=== PATIENT | male | born 1955 | race Caucasian/White ===

== ENCOUNTER 2017-09-02 03:45 | Emergency (ER) | payer MEDICAID, SELFPAY ==
[2017-09-02 03:46] VITALS: BP 154/81; PULSE 75; RESP 16; TEMP 36.6; O2SAT 97; BMI 33.5
--- NOTE | 2017-09-02 04:03 | ED.VISSUMM ---
- ER Visit Summary Date of Service: 09/02/17 Chief Complaint: Visual and auditory hallucinations History of Present Illness: The patient is a 62 M history of psychiatric illness along with diabetes, Parkinson's disease and coronary disease. Patient denies being homicidal or suicidal. Currently he is cooperative and nonviolent. He is resting in bed comfortably. I spoke to patrol police lieutenant brought him in. Reportedly the patient called the police station the night they went out to his home tract without. He is surrounded by several vacant apartments. And he was stating that he was hearing voices coming from his [place]. Also that someone was chasing with a chainsaw. Please verify that none of this was true. They left his apartment. MR call back a second time. He was stating that his neighbors in the apartment complex were trying to put screws through the [place]. Please told me they verify that there was no one around. They agree that the patient is not homicidal or suicidal. They have not been called to his apartment before tonight. Physical Examination: Well-appearing middle-age male. Vital signs are stable he is afebrile. He does not look septic or toxic is currently no acute distress. He is lying in bed. He is cooperative. He is not violent. He is not acting out. He is allowing the nurses to draw his blood. He is in no distress. H EENT exam unremarkable and a poor dentition. Neck nontender. Lungs clear to auscultation bilaterally. Heart regular rate and rhythm no murmur. Abdomen soft nontender. Normal bowel sounds no peritoneal signs. He is moving all 4 extremities. He is neurovascularly intact. There are no focal motor deficits. Back exam is unremarkable result old well-healed lumbar surgical incision. Test Results: CBC normal. BMP unremarkable except acute on chronic renal insufficiency with creatinine 2.11. He has had elevated creatinines in the past. Tox screen negative. Alcohol level negative. Emergency Department Course and Treatment: Is with a prior psychiatric history. Screening labs be obtained. He will be a crisis evaluation for final disposition. Treatment Plan: Patient is doing well on repeat exam at 06 50. Crisis personnel is in the ER at this time evaluate the patient. I will make final disposition. I am comfortable to discharge the patient to home with close follow-up with counseling center this week. Disposition: dc Impression: History of psychiatric illness Acute visual and auditory hallucinations History of CAD, diabetes and Parkinson's disease. This note was generated with [employer] dictation software. It may contain incorrect words, spelling, and punctuation that were not noted in review of the chart prior to signing ED Disposition - Plan for ED Patient: Chief Complaint: Mental Health Referrals: Vishal Patino MD [NON-STAFF] -
--- NOTE | 2017-09-02 04:08 | ED.DCSUM_ITS ---
- ER Visit Summary Date of Service: 09/02/17 Chief Complaint: Visual and auditory hallucinations History of Present Illness: The patient is a 62 M history of psychiatric illness along with diabetes, Parkinson's disease and coronary disease. Patient denies being homicidal or suicidal. Currently he is cooperative and nonviolent. He is resting in bed comfortably. I spoke to railroad police officer brought him in. Reportedly the patient called the police station the night they went out to his home tract without. He is surrounded by several vacant apartments. And he was stating that he was hearing voices coming from his apartment [place]. Also that someone was chasing with a chainsaw. Please verify that none of this was true. They left his apartment. MR call back a second time. He was stating that his neighbors in the apartment complex were trying to put screws through the [place]. Please told me they verify that there was no one around. They agree that the patient is not homicidal or suicidal. They have not been called to his apartment before tonight. Physical Examination: Well-appearing middle-age male. Vital signs are stable he is afebrile. He does not look septic or toxic is currently no acute distress. He is lying in bed. He is cooperative. He is not violent. He is not acting out. He is allowing the nurses to draw his blood. He is in no distress. H EENT exam unremarkable and a poor dentition. Neck nontender. Lungs clear to auscultation bilaterally. Heart regular rate and rhythm no murmur. Abdomen soft nontender. Normal bowel sounds no peritoneal signs. He is moving all 4 extremities. He is neurovascularly intact. There are no focal motor deficits. Back exam is unremarkable result old well-healed lumbar surgical incision. Test Results: CBC normal. BMP unremarkable except acute on chronic renal insufficiency with creatinine 2.11. He has had elevated creatinines in the past. Tox screen negative. Alcohol level negative. Emergency Department Course and Treatment: Is with a prior psychiatric history. Screening labs be obtained. He will be a crisis evaluation for final disposition. Treatment Plan: Patient is doing well on repeat exam at 06 50. Crisis personnel is in the ER at this time evaluate the patient. I will make final disposition. I am comfortable to discharge the patient to home with close follow-up with counseling center this week. Disposition: dc Impression: History of psychiatric illness Acute visual and auditory hallucinations History of CAD, diabetes and Parkinson's disease. This note was generated with [employer] dictation software. It may contain incorrect words, spelling, and punctuation that were not noted in review of the chart prior to signing ED Disposition - Plan for ED Patient: Chief Complaint: Mental Health Referrals: Vishal Patino MD [NON-STAFF] -
[2017-09-02 04:19] LABS: Absolute Lymphocyte Count 1.01 X10^3/ul (0.83-4.51); Absolute Neutrophil Count 4.7 X10^3/uL (2.0-7.7); Anion Gap 13 (5-15); BUN 43 mg/dL (7-18); BUN/Creat Ratio 20.4 RATIO (10-20); Basophil# 0.02 X10^3/uL; Basophil% 0.3 % (0-1); Calcium,Total 8.4 mg/dL (8.5-10.1); Chloride 104 mmol/L (98-107); Creatinine, Serum 2.11 mg/dL (0.70-1.30); EST Glomerular Filtration Rate 34 mL/min (>60); Eosinophil# 0.32 X10^3/uL; Eosinophils% 4.8 % (0-5); Est Glom Filt Rate - Afr Amer 41 mL/min (>60); Estimated Creatinine Clearance 29.59 ml/min; Glucose 216 mg/dL (74-106); Hematocrit 39.5 % (40-54); Hemoglobin 12.9 g/dl (13.0-16.5); Lymphocyte # 1.01 X10^3/ul (4.0); Lymphocyte % 15.3 % (19-41); Mean Corp Hgb Conc 32.7 g/gl (32-36); Mean Corpuscular Hgb 28.9 pg (27.0-32.0); Mean Corpuscular Volume 88.6 fL (80-94); Mean Platelet Vol. 10.3 fl (6.2-12.0); Monocyte# 0.57 X10^3/uL; Monocyte% 8.6 % (0-10); Neutrophil # 4.68 X10^3/uL (2.7-7.7); Neutrophil % 70.7 % (47-70); Platelet Count 147 K/mm3 (150-450); Potassium 4.8 mmol/L (3.5-5.1); RBC Distribution Width CV 13.8 % (11.6-14.6); RBC Distribution Width SD 44.7 fl (35.1-43.9); Red Blood Count 4.46 M/mm3 (4.6-6.2); Sodium Level 139 mmol/L (136-145); White Blood Count 6.6 K/mm3 (4.4-11.0)
[2017-09-02 04:21] LABS: POSITIVE COUNT NO; POSITIVE DIFFERENTIAL NO; POSITIVE MORPHOLOGY NO
--- NOTE | 2017-09-02 05:10 | NURSING ---
CALLED CRISIS TO SEE THIS PT
[2017-09-02 05:54] LABS: Amphetamine Urine VISTA NEGATIVE (<1000 ng/mL); Barbiturate Urine VISTA NEGATIVE (< 200 ng/mL); Benzodiazepine Urine VISTA NEGATIVE (< 200 ng/mL); Cocaine Urine VISTA NEGATIVE (< 300 ng/mL); Ecstacy Urine VISTA NEGATIVE (< 500 ng/mL); Methadone Urine VISTA NEGATIVE (< 300 ng/mL); PCP Urine VISTA NEGATIVE (< 25 ng/mL); THC Urine VISTA NEGATIVE (< 50 ng/mL); Vista UDS pH Range 6
--- NOTE | 2017-09-02 07:02 | ED.DEP ---
ED Disposition - Plan for ED Patient: Disposition: Home or Assisted Living Chief Complaint: Mental Health Instructions: ED Schizophrenia General Referrals: Vishal Patino MD [NON-STAFF] - As Needed Counseling,Center [GROUP OF PHYSICIANS] - As soon as possible Additional Instructions: Call and follow-up with your psychiatrist and/or that counseling center this week. Return to the ER if you are feeling worse. Continue your current medications.
[2017-09-02 07:08] VITALS: BP 139/75; PULSE 64; RESP 16; O2SAT 96
[2017-09-02 07:10] VITALS: BP 139/75; PULSE 62; RESP 6; O2SAT 96
== END 2017-09-02 07:11 | disposition home or self-care (01) ==
PROVIDERS: Emergency Provider Emergency Medicine
DX: R44.0 Auditory hallucinations (principal); I25.10 Atherosclerotic heart disease of native coronary artery without angina pectoris; E11.9 Type 2 diabetes mellitus without complications; G20 Parkinson's disease; R19.7 Diarrhea, unspecified; Z86.73 Personal history of transient ischemic attack (TIA), and cerebral infarction without residual deficits; Z87.891 Personal history of nicotine dependence
CPT/HCPCS: 80048; 80307; 80320; 85025; 99283; G0480

== ENCOUNTER 2017-10-04 07:11 | Emergency (ER) | payer MEDICAID, SELFPAY ==
[2017-10-04] VITALS (20 sets, daily range): BP systolic 143–205; BP diastolic 80–104; PULSE 81–115; RESP 14–24; TEMP 36.6; O2SAT 96–100; BMI 32.4
[2017-10-04 07:41] LABS: Bedside Glucose 321 mg/dL (70-110)
--- NOTE | 2017-10-04 07:42 | ED.RN ---
CALLED [facility] PER DR CARRILLO TO INFORM THEM THAT THE PT IS HERE AND WILL NEED TO BE EVALUATED
--- NOTE | 2017-10-04 07:58 | ED.RN ---
PT REQUESTS POLICE BE CALLED TO DO A WELFARE CHECK ON EX . STATES SOMETHING BAD HAS HAPPENED TO HER. PT DOES NOT ELABORATE
[2017-10-04 08:03] LABS: Anion Gap 15 (5-15); BUN 42 mg/dL (7-18); BUN/Creat Ratio 18.9 RATIO (10-20); Calcium,Total 9.4 mg/dL (8.5-10.1); Chloride 101 mmol/L (98-107); Creatinine, Serum 2.22 mg/dL (0.70-1.30); EST Glomerular Filtration Rate 32 mL/min (>60); Est Glom Filt Rate - Afr Amer 39 mL/min (>60); Estimated Creatinine Clearance 28.12 ml/min; Glucose 311 mg/dL (74-106); Potassium 4.5 mmol/L (3.5-5.1); Sodium Level 136 mmol/L (136-145)
[2017-10-04 08:08] LABS: Absolute Lymphocyte Count 0.93 X10^3/ul (0.83-4.51); Absolute Neutrophil Count 5.1 X10^3/uL (2.0-7.7); Basophil# 0.02 X10^3/uL; Basophil% 0.3 % (0-1); Eosinophil# 0.13 X10^3/uL; Hematocrit 41.7 % (40-54); Lymphocyte # 0.93 X10^3/ul (4.0); Lymphocyte % 14.1 % (19-41); Mean Corp Hgb Conc 33.6 g/gl (32-36); Mean Corpuscular Hgb 28.7 pg (27.0-32.0); Mean Corpuscular Volume 85.5 fL (80-94); Mean Platelet Vol. 9.9 fl (6.2-12.0); Monocyte# 0.39 X10^3/uL; Monocyte% 5.9 % (0-10); Neutrophil % 77.5 % (47-70); Platelet Count 204 K/mm3 (150-450); RBC Distribution Width CV 13.4 % (11.6-14.6); RBC Distribution Width SD 41.4 fl (35.1-43.9); Red Blood Count 4.88 M/mm3 (4.6-6.2); White Blood Count 6.6 K/mm3 (4.4-11.0)
[2017-10-04 08:09] LABS: POSITIVE COUNT NO; POSITIVE DIFFERENTIAL NO; POSITIVE MORPHOLOGY NO
[2017-10-04 08:10] LABS: Alcohol, Blood (Medical)-Serum < 3.0 mg/dL
--- NOTE | 2017-10-04 08:20 | ED.RN ---
ELIJAH WITH CRISIS CALLED; REQUESTED WE DO A DRUG SCREEN ON PT FOR PLACEMENT; HE IS SENDING MEG OVER TO EVAL PT
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
[2017-10-04 08:39] LABS: Mucous, Urine 0 SEEN /hpf (<or=2+); Red Blood Cells-Urine 0 SEEN /hpf (0-5); White Blood Cells 0 SEEN /hpf (0-5)
[2017-10-04] MEDS: Labetalol 100 MG/20 ML Vial 10 MG IV (08:39)
[2017-10-04 08:40] LABS: Color, Urine Straw (Yellow); Glucose, Dipstick 1000 mg/dl (Normal); Ketone-Dipstick 50 mg/dl (Negative); Leukocyte Esterase-Dipstick Negative /ul (Negative); Nitrite-Dipstick Negative (Negative); Occult Blood-Urine 50 /ul (Negative); Protein-Dipstick 100 mg/dl (Negative); Specific Gravity, Urine 1.015 (1.002-1.030); Urine Bilirubin Dipstick Negative (Negative); Urine Clarity Clear (Clear); Urine Urobilinogen Normal (Normal)
[2017-10-04 08:46] LABS: Bacteria RARE /hpf (None Seen); Hyaline Cast 0-5 SEEN /lpf (0-5); Squamous Epithelial Cells - UA 0-5 SEEN /hpf (0-5)
[2017-10-04 09:13] LABS: Amphetamine Urine VISTA NEGATIVE (<1000 ng/mL); Barbiturate Urine VISTA NEGATIVE (< 200 ng/mL); Benzodiazepine Urine VISTA NEGATIVE (< 200 ng/mL); Cocaine Urine VISTA NEGATIVE (< 300 ng/mL); Ecstacy Urine VISTA NEGATIVE (< 500 ng/mL); Methadone Urine VISTA NEGATIVE (< 300 ng/mL); PCP Urine VISTA NEGATIVE (< 25 ng/mL); THC Urine VISTA NEGATIVE (< 50 ng/mL); Vista UDS pH Range 5
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
--- NOTE | 2017-10-04 09:51 | ED.RN ---
PT DAUGHTER CRYSTAL HERE TO SEE THE PT. PT GAVE PERMISSION FOR STAFF TO LET DAUGHTER KNOW HE IS HERE BUT DOES NOT WANT VISITORS AT THIS TIME. DAUGHTER REQUESTED PERMISSION FROM PT TO GO CHECK ON HIS DOG. WHEN THIS NURSE SPOKE WITH THE PT ABOUT THE SAME THE PT NODDED HIS HEAD YES AND WROTE DOWN A NUMBER TO GIVE TO HIS DAUGHTER. THIS INFORMATION WAS THEN PASSED ON TO THE DAUGHTER. DAUGHTER'S PHONE NUMBER [phone]
--- NOTE | 2017-10-04 11:51 | ED.RN ---
MEDICATION LIST AND DOSES OBTAINED FROM [facility]
--- NOTE | 2017-10-04 13:36 | PCA ---
PRINTED OLD EKG
[2017-10-04 14:20] LABS: Bedside Glucose 219 mg/dL (70-110)
--- NOTE | 2017-10-04 18:11 | ED.RN ---
MEAL GIVEN HUMA PT, PT REFUSES TO OPEN EYES OR SPEAK TO THIS RN. MEAL LEFT AT BEDSIDE.
--- NOTE | 2017-10-04 18:33 | ED.RN ---
PER ELIJAH WITH CRISIS; HE IS WORKING WITH [place] [facility] TO GET PT ADMITTED; OLIVIER WITH TAKE OVER THE CASE; FACILITY CALLED ASKED WE FAXED TOXICOLOGY RESULTS TO FACILITY
[2017-10-04 19:11] LABS: Bedside Glucose 253 mg/dL (70-110)
--- NOTE | 2017-10-04 20:31 | NURSING ---
CALLED FOR TRANSPORT TO [facility] FOR THIS PT, [facility], [facility], [facility], AND [facility] ALL DECLINED THE RUN AT THIS TIME. [facility] WILL TAKE THE TRANSPORT AT 08:00.
--- NOTE | 2017-10-04 21:52 | ED.RN ---
Patient manic at this time having visual and auditory hallucinations at this time. Patient believes he is going to and wants his bed pulled into the hallway. Advised patient we are not able to due to at this time for safety reasons. That we will try and move patient into another room as soon as possible. Night time medication being ordered at this time. Dr. Carreno made aware at this time
--- NOTE | 2017-10-04 21:55 | NURSING ---
PT REQUESTED TO WALK TO BATHROOM TO HAVE A BOWEL MOVEMENT. PT AMBULATED APPROPRIATELY TO THE BATHROOM. WHEN COMING BACK INTO ROOM PT REQUESTED TO SIT IN A CHAIR NEXT TO BED. PT TOLD HE MUST STAY IN CHAIR AND GIVEN CALL LIGHT. PT PLACED BACK ON MONITOR. CURTAIN OPEN AND PT IN VIEW OF NURSING STATION
[2017-10-04 22:55] LABS: Bedside Glucose 353 mg/dL (70-110)
[2017-10-04] MEDS: Sertraline 100 MG Tablet PO (22:56)
[2017-10-04] MEDS: Atorvastatin Calcium 80 MG Tablet PO (22:57)
[2017-10-04] MEDS: Carvedilol 12.5 MG Tablet PO (22:57)
[2017-10-04] MEDS: Pramipexole Di-HCl 0.5 MG Tablet PO (22:57)
[2017-10-04] MEDS: DOXEPIN HCL 50 MG CAPSULE PO (22:57)
[2017-10-05] VITALS (10 sets, daily range): BP systolic 105–159; BP diastolic 61–88; PULSE 75–91; RESP 16–18; O2SAT 95–100
[2017-10-05] MEDS: Clopidogrel Bisulfate 75 MG Tablet PO (06:29)
[2017-10-05] MEDS: Carvedilol 12.5 MG Tablet PO (06:29)
[2017-10-05 06:30] LABS: Bedside Glucose 318 mg/dL (70-110)
[2017-10-05] MEDS: Pramipexole Di-HCl 0.5 MG Tablet PO (06:30)
--- NOTE | 2017-10-05 07:13 | ED.RN ---
WAITING ON MEDS FROM PHARMACY. CALLED PHARMACY FOR RISPERDAL.
[2017-10-05] MEDS: RisperiDONE 0.5 MG Tablet PO (07:31)
[2017-10-05 08:16] LABS: Bedside Glucose 389 mg/dL (70-110)
--- NOTE | 2017-10-05 08:45 | NURSING ---
CALLED [facility] FOR TRANSPORT. ETA IS WITHIN THE HOUR
--- NOTE | 2017-10-05 09:51 | ED.RN ---
REPORT GIVEN TO [facility]
== END 2017-10-05 09:55 ==
PROVIDERS: Emergency Provider Emergency Medicine
DX: R44.0 Auditory hallucinations (principal); R44.1 Visual hallucinations; Z86.73 Personal history of transient ischemic attack (TIA), and cerebral infarction without residual deficits; Z91.14 Patient's other noncompliance with medication regimen; E11.65 Type 2 diabetes mellitus with hyperglycemia; E11.22 Type 2 diabetes mellitus with diabetic chronic kidney disease; I12.0 Hypertensive chronic kidney disease with stage 5 chronic kidney disease or end stage renal disease; N18.6 End stage renal disease; Z86.14 Personal history of Methicillin resistant Staphylococcus aureus infection; E66.9 Obesity, unspecified; F41.9 Anxiety disorder, unspecified; I25.10 Atherosclerotic heart disease of native coronary artery without angina pectoris; Z87.891 Personal history of nicotine dependence; Z79.4 Long term (current) use of insulin
CPT/HCPCS: 80048; 80307; 80320; 81001; 82962; 85025; 99284; J7030; A4216; G0480

== ENCOUNTER 2017-10-14 02:21 | Emergency (ER) | payer MEDICAID, SELFPAY ==
[2017-10-14 02:22] VITALS: BP 175/72; PULSE 71; RESP 16; TEMP 36.4; O2SAT 100; BMI 28.8
[2017-10-14 02:34] VITALS: RESP 14
[2017-10-14 02:36] LABS: Bedside Glucose 241 mg/dL (70-110)
--- NOTE | 2017-10-14 03:05 | CT_ITS ---
STUDY: CT BRAIN WITHOUT CONTRAST REASON FOR EXAM: Male, 62 years old. Head pain. Patient was found lying upon a basement stairs. No visible injury. Elevated blood pressure. History of hypertension, TIA, diabetes, dementia, Parkinson's, and schizophrenia. RADIATION DOSAGE (If Supplied By Facility): CTDIvol = ( 44.99 ) mGy, DLP = ( 779.24 ) mGycm TECHNIQUE: Transaxial CT imaging of the brain was performed without administration of intravenous contrast material. Individualized dose optimization techniques were used for this CT. COMPARISON: 05/26/2016. FINDINGS: Normal soft tissue structures. Normal calvarium. There is focal encephalomalacia in the left occipital lobe, consistent with an old infarction. There is mild cerebral atrophy with widening of the extra-axial spaces and ventricular dilatation. There are areas of decreased attenuation within the white matter tracts of the supratentorial brain, consistent with microvascular disease changes. Normal basal ganglia and thalami. Normal brainstem. Normal cerebellum. There is atherosclerotic calcification of the vertebral and cavernous carotid arteries. There is no intracranial hemorrhage. There are no findings of an acute ischemic infarction. There is mucoperiosteal inflammatory disease of the bilateral ethmoid, bilateral maxillary, left sphenoid, and bilateral frontal sinuses consistent with moderate chronic sinusitis. There is no evidence for acute sinusitis. CT/Brain/Head without Contrast IMPRESSION: Chronic involutional changes of the brain. 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 No demonstrated acute intracranial process. Electronically Signed: Bob Ibrahim MD at 4:46 EDT , Service support ,
--- NOTE | 2017-10-14 03:05 | RAD_ITS ---
STUDY: X-RAY - LEFT HAND REASON FOR EXAM: Male, 62 years old. Fall.Left hand pain. TECHNIQUE: view(s) of the hand. COMPARISON: None. FINDINGS: Normal radiocarpal articulation. Normal distal radioulnar joint. Normal visualized carpal bones. Normal carpal articulations Normal carpometacarpal articulation of the thumb. Normal second through fifth carpometacarpal joints. Normal metacarpi. There is degenerative arthrosis of the metacarpophalangeal (MCP) joints. Normal interphalangeal joint of the thumb. Normal proximal and distal phalanges of the thumb. Normal metacarpophalangeal joints of the second through fifth fingers. There is degenerative arthrosis of the proximal and distal interphalangeal joints of the second through fifth fingers. Normal phalanges of the second through fifth fingers. The soft tissue structures are unremarkable. RAD/Hand Min 3 Views IMPRESSION: Degenerative joint disease of the hand, as described above. Electronically Signed: Azael Barber MD at 4:30 EDT Tel , Service support ,
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
[2017-10-14 05:31] VITALS: PULSE 82; RESP 18; O2SAT 99
== END 2017-10-14 05:31 | disposition home or self-care (01) ==
PROVIDERS: Emergency Provider Emergency Medicine
DX: S60.222A Contusion of left hand, initial encounter (principal); S09.90XA Unspecified injury of head, initial encounter; W10.9XXA Fall (on) (from) unspecified stairs and steps, initial encounter; Y93.9 Activity, unspecified; Y92.039 Unspecified place in apartment as the place of occurrence of the external cause; Y99.9 Unspecified external cause status; E11.9 Type 2 diabetes mellitus without complications; E78.00 Pure hypercholesterolemia, unspecified; J45.909 Unspecified asthma, uncomplicated; F03.90 Unspecified dementia, unspecified severity, without behavioral disturbance, psychotic disturbance, mood disturbance, and anxiety; Z86.73 Personal history of transient ischemic attack (TIA), and cerebral infarction without residual deficits; Z72.0 Tobacco use
CPT/HCPCS: 70450; 73130; 82962; 99284

== ENCOUNTER 2017-10-18 15:09 | Emergency (ER) | payer MEDICAID, SELFPAY ==
[2017-10-18 15:12] VITALS: BP 159/83; PULSE 71; RESP 17; TEMP 37.6; O2SAT 95; BMI 35.4
--- NOTE | 2017-10-18 15:30 | EKG12_ITS ---
Test Reason : Blood Pressure : / mmHG Vent. Rate : 069 BPM Atrial Rate : 069 BPM P-R Int : 158 ms QRS Dur : 064 ms QT Int : 398 ms P-R-T Axes : 046 008 058 degrees QTc Int : 426 ms Normal sinus rhythm Normal ECG Confirmed by KWAKU TINEO MD ([id number]), copy editor DANIELITO WANG ([id number] on 10/23/2017 2:13:13 PM Referred By: Confirmed By:KWAKU TINEO MD
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
[2017-10-18 15:57] LABS: Absolute Lymphocyte Count 0.76 X10^3/ul (0.83-4.51); Absolute Neutrophil Count 4.7 X10^3/uL (2.0-7.7); Basophil# 0.02 X10^3/uL; Basophil% 0.3 % (0-1); Eosinophil# 0.21 X10^3/uL; Eosinophils% 3.5 % (0-5); Hematocrit 39.4 % (40-54); Hemoglobin 12.7 g/dl (13.0-16.5); Lymphocyte # 0.76 X10^3/ul (4.0); Lymphocyte % 12.5 % (19-41); Mean Corp Hgb Conc 32.2 g/gl (32-36); Mean Corpuscular Hgb 28.2 pg (27.0-32.0); Mean Corpuscular Volume 87.6 fL (80-94); Monocyte# 0.35 X10^3/uL; Monocyte% 5.8 % (0-10); Neutrophil # 4.73 X10^3/uL (2.7-7.7); Neutrophil % 77.7 % (47-70); Platelet Count 177 K/mm3 (150-450); RBC Distribution Width CV 13.4 % (11.6-14.6); RBC Distribution Width SD 42.8 fl (35.1-43.9); White Blood Count 6.1 K/mm3 (4.4-11.0)
--- NOTE | 2017-10-18 15:59 | ED.RN ---
pt unsure of home medications. Used meds from previous visit
[2017-10-18 16:06] LABS: POSITIVE COUNT NO; POSITIVE DIFFERENTIAL NO; POSITIVE MORPHOLOGY NO
[2017-10-18 16:10] LABS: Bacteria 0 SEEN /hpf (None Seen); Mucous, Urine 0 SEEN /hpf (<or=2+); Squamous Epithelial Cells - UA 0 SEEN /hpf (0-5); White Blood Cells 0 SEEN /hpf (0-5)
[2017-10-18 16:12] LABS: Color, Urine Yellow (Yellow); Glucose, Dipstick 1000 mg/dl (Normal); Ketone-Dipstick Negative (Negative); Leukocyte Esterase-Dipstick Negative /ul (Negative); Nitrite-Dipstick Negative (Negative); Occult Blood-Urine 25 /ul (Negative); Protein-Dipstick 30 mg/dl (Negative); Specific Gravity, Urine 1.015 (1.002-1.030); Urine Bilirubin Dipstick Negative (Negative); Urine Clarity Clear (Clear); Urine Urobilinogen Normal (Normal)
[2017-10-18 16:18] LABS: Red Blood Cells-Urine 0-5 SEEN /hpf (0-5)
[2017-10-18 16:22] LABS: ALB/GLOB Ratio 0.9 RATIO (0.9-2.4); AST(SGOT) 19 U/L (15-37); Alanine Aminotransfer ALT/SGPT 25 U/L (16-61); Albumin, Serum 3.6 g/dL (3.2-5.0); Alkaline Phosphatase 104 U/L (45-117); Anion Gap 7 (5-15); BUN 36 mg/dL (7-18); BUN/Creat Ratio 18.8 RATIO (10-20); Calcium,Total 8.4 mg/dL (8.5-10.1); Chloride 108 mmol/L (98-107); Creatinine, Serum 1.92 mg/dL (0.70-1.30); EST Glomerular Filtration Rate 38 mL/min (>60); Est Glom Filt Rate - Afr Amer 46 mL/min (>60); Estimated Creatinine Clearance 29.89 ml/min; Globulin 3.8 g/dL (2.2-4.2); Glucose 434 mg/dL (74-106); Protein, Total 7.4 g/dL (6.4-8.2); Sodium Level 137 mmol/L (136-145); Thyroid Stim Hormone (TSH) 4.92 uIU/mL (0.358-3.74)
[2017-10-18 16:42] LABS: Amphetamine Urine VISTA NEGATIVE (<1000 ng/mL); Barbiturate Urine VISTA NEGATIVE (< 200 ng/mL); Benzodiazepine Urine VISTA NEGATIVE (< 200 ng/mL); Cocaine Urine VISTA NEGATIVE (< 300 ng/mL); Ecstacy Urine VISTA NEGATIVE (< 500 ng/mL); Methadone Urine VISTA NEGATIVE (< 300 ng/mL); PCP Urine VISTA NEGATIVE (< 25 ng/mL); THC Urine VISTA NEGATIVE (< 50 ng/mL); Vista UDS pH Range 5
[2017-10-18 18:00] VITALS: BP 171/70; PULSE 68; RESP 18; O2SAT 96
[2017-10-18 20:00] VITALS: RESP 16
[2017-10-18 22:00] VITALS: RESP 16
[2017-10-19] VITALS (8 sets, daily range): BP systolic 135–196; BP diastolic 71–90; PULSE 60–71; RESP 16–18; O2SAT 97–100
--- NOTE | 2017-10-19 00:09 | RAD_ITS ---
STUDY: X-RAY CHEST REASON FOR EXAM: Male, 62 years old. mental clearance TECHNIQUE: Single AP portable view of the chest. COMPARISON: None. FINDINGS: Subsegmental atelectasis is noted in the right lung base. There is no demonstrated pleural abnormality. Normal size heart. Normal mediastinum and elier. Normal visualized pulmonary arteries. Normal visualized aortic arch and descending thoracic aorta. Normal visualized thoracic spine. There is degenerative osteoarthritis of the bilateral shoulders. There is elevation of the left hemidiaphragm. RAD/Chest 1 View (Portable) IMPRESSION: Degenerative changes, as described above. No demonstrated acute cardiopulmonary process. Electronically Signed: Azael Barber MD at 1:05 EDT Tel , Service support ,
[2017-10-19 02:51] LABS: Bedside Glucose 262 mg/dL (70-110)
[2017-10-19] MEDS: Sertraline 100 MG Tablet PO (03:51)
[2017-10-19] MEDS: RisperiDONE 0.5 MG Tablet PO (03:51)
[2017-10-19] MEDS: Carvedilol 12.5 MG Tablet PO ×2 (03:51→11:30)
[2017-10-19] MEDS: Pramipexole Di-HCl 0.5 MG Tablet PO (03:51)
[2017-10-19] MEDS: Atorvastatin Calcium 80 MG Tablet PO (03:51)
[2017-10-19 06:35] LABS: Bedside Glucose 341 mg/dL (70-110)
[2017-10-19 08:46] LABS: Bedside Glucose 390 mg/dL (70-110)
[2017-10-19 10:01] LABS: Bedside Glucose 298 mg/dL (70-110)
--- NOTE | 2017-10-19 11:09 | ED.RN ---
[facility] has refused pt. [facility] and working on other placement
--- NOTE | 2017-10-19 11:16 | ED.RN ---
phone given back to pt
[2017-10-19] MEDS: Famotidine 20 MG Tablet PO (11:30)
[2017-10-19] MEDS: Clopidogrel Bisulfate 75 MG Tablet PO (11:30)
[2017-10-19 11:51] LABS: Bedside Glucose 127 mg/dL (70-110)
[2017-10-19] MEDS: Pramipexole Di-HCl 0.25 MG Tablet PO (15:01)
--- NOTE | 2017-10-19 16:11 | ED.RN ---
Rose from crisis said a referall went to [facility] at noon today and they have yet to review it by now.
[2017-10-19 17:26] LABS: Bedside Glucose 317 mg/dL (70-110)
--- NOTE | 2017-10-19 18:22 | ED.RN ---
pt paranoid, pacing around room and into burgos
--- NOTE | 2017-10-19 21:53 | ED.RN ---
CALLED [facility] TO SEE IF EITHER COULD TRANSPORT THIS PATIENT TO [facility]. BOTH DISPATCHERS STATED THEY CANNOT TAKE THE PATIENT UNTIL MORNING.
--- NOTE | 2017-10-19 21:54 | ED.RN ---
PATIENT WAS ACCEPTED AT [facility]. AWAITING [facility] IN MORNING TO TRANSPORT PATIENT.
[2017-10-20] VITALS: BP 147/68; PULSE 87; RESP 14; O2SAT 98
[2017-10-20 02:53] VITALS: RESP 16
[2017-10-20] MEDS: Pramipexole Di-HCl 0.25 MG Tablet PO ×2 (04:37→07:52)
[2017-10-20] MEDS: Sertraline 100 MG Tablet PO (04:37)
[2017-10-20] MEDS: Famotidine 20 MG Tablet PO (04:37)
[2017-10-20] MEDS: Doxepin Hcl 25 MG Capsule 50 MG PO (04:37)
[2017-10-20] MEDS: Carvedilol 12.5 MG Tablet PO (04:38)
[2017-10-20] MEDS: Atorvastatin Calcium 80 MG Tablet PO (04:38)
[2017-10-20 04:46] LABS: Bedside Glucose 121 mg/dL (70-110)
[2017-10-20 04:51] VITALS: BP 174/90; PULSE 91; RESP 16; O2SAT 98
[2017-10-20 06:56] VITALS: BP 154/87; PULSE 78; RESP 16; O2SAT 98
[2017-10-20 07:11] LABS: Bedside Glucose 172 mg/dL (70-110)
[2017-10-20 08:27] VITALS: BP 157/90; PULSE 63; RESP 18; O2SAT 96
== END 2017-10-20 08:29 ==
PROVIDERS: Emergency Provider Emergency Medicine
DX: F20.0 Paranoid schizophrenia (principal); J45.909 Unspecified asthma, uncomplicated; E11.9 Type 2 diabetes mellitus without complications; K21.9 Gastro-esophageal reflux disease without esophagitis; Z87.891 Personal history of nicotine dependence; Z86.73 Personal history of transient ischemic attack (TIA), and cerebral infarction without residual deficits
CPT/HCPCS: 36415; 71045; 80053; 80307; 80320; 81001; 82962; 84443; 85025; 93005; 99285; G0480

== ENCOUNTER → 2018-01-05 23:59 | Outpatient (RCR) | payer MEDICAID, SELFPAY | LOC: CCN 04-12 11:36 | PROVIDERS: Family Provider Family Medicine; PCP Family Medicine; Visit Provider Family Medicine | DX: Z00.00 Encounter for general adult medical examination without abnormal findings (principal) ==

== ENCOUNTER 2018-02-12 05:58 | Emergency (ER) | payer MEDICAID, SELFPAY ==
[2018-02-12] VITALS (8 sets, daily range): BP systolic 176–182; BP diastolic 82–155; PULSE 77–89; RESP 14–19; TEMP 36.8; O2SAT 97–99; BMI 29.5
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
[2018-02-12 06:35] LABS: Absolute Lymphocyte Count 1.76 X10^3/ul (0.83-4.51); Absolute Neutrophil Count 5.3 X10^3/uL (2.0-7.7); Basophil# 0.03 X10^3/uL; Basophil% 0.4 % (0-1); Eosinophil# 0.18 X10^3/uL; Eosinophils% 2.2 % (0-5); Hematocrit 41.5 % (40-54); Hemoglobin 13.8 g/dl (13.0-16.5); Lymphocyte # 1.76 X10^3/ul (4.0); Lymphocyte % 21.6 % (19-41); Mean Corp Hgb Conc 33.3 g/gl (32-36); Mean Corpuscular Hgb 28.5 pg (27.0-32.0); Mean Corpuscular Volume 85.7 fL (80-94); Mean Platelet Vol. 9.9 fl (6.2-12.0); Monocyte# 0.84 X10^3/uL; Monocyte% 10.3 % (0-10); Neutrophil # 5.33 X10^3/uL (2.7-7.7); Neutrophil % 65.3 % (47-70); Platelet Count 176 K/mm3 (150-450); RBC Distribution Width CV 13.6 % (11.6-14.6); Red Blood Count 4.84 M/mm3 (4.6-6.2); White Blood Count 8.2 K/mm3 (4.4-11.0)
[2018-02-12 06:37] LABS: POSITIVE COUNT NO; POSITIVE DIFFERENTIAL NO; POSITIVE MORPHOLOGY NO
[2018-02-12 06:50] LABS: Anion Gap 16 (5-15); BUN 57 mg/dL (7-18); BUN/Creat Ratio 22.3 RATIO (10-20); Calcium,Total 9.4 mg/dL (8.5-10.1); Chloride 108 mmol/L (98-107); Creatinine, Serum 2.56 mg/dL (0.70-1.30); EST Glomerular Filtration Rate 27 mL/min (>60); Est Glom Filt Rate - Afr Amer 33 mL/min (>60); Estimated Creatinine Clearance 28.33 ml/min; Glucose 185 mg/dL (74-106); Potassium 4.2 mmol/L (3.5-5.1); Sodium Level 142 mmol/L (136-145)
[2018-02-12 07:26] LABS: Bacteria 0 SEEN /hpf (None Seen); Mucous, Urine 0 SEEN /hpf (<or=2+); White Blood Cells 0 SEEN /hpf (0-5)
[2018-02-12 07:35] LABS: Color, Urine Yellow (Yellow); Glucose, Dipstick Normal (Normal); Ketone-Dipstick 15 mg/dl (Negative); Leukocyte Esterase-Dipstick Negative /ul (Negative); Nitrite-Dipstick Negative (Negative); Occult Blood-Urine 250 /ul (Negative); Protein-Dipstick 100 mg/dl (Negative); Urine Bilirubin Dipstick Negative (Negative); Urine Clarity Sl. Cloudy (Clear); Urine Urobilinogen Normal (Normal)
[2018-02-12 07:39] LABS: Amphetamine Urine VISTA NEGATIVE (<1000 ng/mL); Barbiturate Urine VISTA NEGATIVE (< 200 ng/mL); Benzodiazepine Urine VISTA NEGATIVE (< 200 ng/mL); Cocaine Urine VISTA NEGATIVE (< 300 ng/mL); Ecstacy Urine VISTA NEGATIVE (< 500 ng/mL); Methadone Urine VISTA NEGATIVE (< 300 ng/mL); PCP Urine VISTA NEGATIVE (< 25 ng/mL); THC Urine VISTA NEGATIVE (< 50 ng/mL); Vista UDS pH Range 5
[2018-02-12 07:42] LABS: Red Blood Cells-Urine 10-25 SEEN /hpf (0-5); Squamous Epithelial Cells - UA 0-5 SEEN /hpf (0-5)
--- NOTE | 2018-02-12 09:01 | NURSING ---
[facility], [facility], HERE FOR PATIENT
--- NOTE | 2018-02-12 13:44 | NURSING ---
CALLED [facility] FOR TRANSPORT. ETA IS 1.5 HRS
== END 2018-02-12 15:26 ==
PROVIDERS: Emergency Provider Emergency Medicine
DX: F20.0 Paranoid schizophrenia (principal); N18.9 Chronic kidney disease, unspecified; E10.65 Type 1 diabetes mellitus with hyperglycemia; G20 Parkinson's disease; F02.80 Dementia in other diseases classified elsewhere, unspecified severity, without behavioral disturbance, psychotic disturbance, mood disturbance, and anxiety; N40.0 Benign prostatic hyperplasia without lower urinary tract symptoms; I12.9 Hypertensive chronic kidney disease with stage 1 through stage 4 chronic kidney disease, or unspecified chronic kidney disease; Z86.73 Personal history of transient ischemic attack (TIA), and cerebral infarction without residual deficits; Z87.820 Personal history of traumatic brain injury
CPT/HCPCS: 36415; 80048; 80307; 80320; 81001; 85025; 93005; 99285; G0480

== ENCOUNTER 2018-07-01 04:07 | Emergency (ER) | payer MEDICAID, SELFPAY ==
[2018-07-01 04:09] VITALS: BP 181/62; PULSE 67; RESP 18; TEMP 37.1; O2SAT 97; BMI 36.5
[2018-07-01 04:18] VITALS: BP 181/62; PULSE 67; RESP 18; TEMP 37.1; O2SAT 98
[2018-07-01 04:35] LABS: Absolute Lymphocyte Count 1.56 X10^3/ul (0.83-4.51); Absolute Neutrophil Count 5.2 X10^3/uL (2.0-7.7); Basophil# 0.03 X10^3/uL; Basophil% 0.4 % (0-1); Eosinophil# 0.45 X10^3/uL; Eosinophils% 5.7 % (0-5); Hematocrit 38.9 % (40-54); Hemoglobin 13.1 g/dl (13.0-16.5); Lymphocyte # 1.56 X10^3/ul (4.0); Lymphocyte % 19.7 % (19-41); Mean Corp Hgb Conc 33.7 g/gl (32-36); Mean Corpuscular Hgb 28.8 pg (27.0-32.0); Mean Corpuscular Volume 85.5 fL (80-94); Mean Platelet Vol. 10.2 fl (6.2-12.0); Monocyte# 0.67 X10^3/uL; Monocyte% 8.5 % (0-10); Neutrophil # 5.18 X10^3/uL (2.7-7.7); Neutrophil % 65.6 % (47-70); Platelet Count 142 K/mm3 (150-450); RBC Distribution Width CV 13.4 % (11.6-14.6); RBC Distribution Width SD 41.5 fl (35.1-43.9); Red Blood Count 4.55 M/mm3 (4.6-6.2); White Blood Count 7.9 K/mm3 (4.4-11.0)
--- NOTE | 2018-07-01 04:35 | RAD_ITS ---
STUDY: X-RAY CHEST REASON FOR EXAM: Male, 63 years old. : Shortness of breath TECHNIQUE: 2 views COMPARISON: October 19, 2017 FINDINGS: There is a slightly elevated left hemidiaphragm but no acute pneumonia or failure. The heart and mediastinum are normal. An orthopedic staple is in the left humeral head. Degenerative changes of the thoracic spine. Normal visualized ribs, clavicles, and shoulders. There is no demonstrated abnormality of the visualized soft tissue structures of the upper abdomen. RAD/Chest PA and Lateral IMPRESSION: No acute findings in the lungs Electronically Signed: Cameron Root MD at 5:00 EST Tel , Service support ,
[2018-07-01 04:36] LABS: POSITIVE COUNT NO; POSITIVE DIFFERENTIAL NO; POSITIVE MORPHOLOGY NO
[2018-07-01] MEDS: MethylPREDNISolone 125 MG/2 ML Vial IV (04:45)
[2018-07-01 04:55] LABS: Anion Gap 11 (5-15); BUN 32 mg/dL (7-18); BUN/Creat Ratio 16.8 RATIO (10-20); Calcium,Total 8.8 mg/dL (8.5-10.1); Chloride 104 mmol/L (98-107); Creatinine, Serum 1.91 mg/dL (0.70-1.30); EST Glomerular Filtration Rate 38 mL/min (>60); Est Glom Filt Rate - Afr Amer 46 mL/min (>60); Estimated Creatinine Clearance 32.27 ml/min; Glucose 239 mg/dL (74-106); Potassium 4.2 mmol/L (3.5-5.1); Sodium Level 138 mmol/L (136-145)
--- NOTE | 2018-07-01 05:02 | ED.VISSUMM ---
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 He reports that he has a cough began 2 days ago. Is productive yellow sputum without blood. He has had chills, but no fever. He denies any chest pain. However, he reports that today he began having shortness of breath. He reports that it severe at worst and mild currently. Is worsened by coughing. It is relieved by exertion and transiently by his albuterol nebulizer. Patient reports he has had dysuria for the past 6 weeks. He has not had this evaluated. He has a headache is 4-10 severity. He has a history of similar headaches. He also complains of generalized weakness. Physical Examination: Vitals: Stable. Afebrile. General: Well-nourished and well-developed. Head: Normocephalic atraumatic. Neck: Supple, no lymphadenopathy. No JVD. Nontender. Cardiovascular: Regular rate and rhythm. No murmurs. Respiratory: No respiratory distress. Clear to auscultation bilaterally. Abdominal: Soft, nontender, nondistended, normal bowel sounds. No guarding, rebound, or peritoneal signs. Back: Nontender. Extremities: Nontender, no edema. Skin: Normal color, no rash. Neurologic: Alert and oriented ?3. Cranial nerves II through XII are intact. Normal strength and sensation. Psych: Normal affect. Test Results: Chest x-ray shows no acute disease. CBC is marked for hematocrit of 38.9, platelets 142, eosinophils of 6. Chem-7 is more for BUN of 32, creatinine 1.91, and glucose 239. His creatinine has ranged between 1.92 and 2.56 in 2018. UA is remarkable for leukocytes and trace blood. Emergency Department Course and Treatment: Patient received AN aerosol on the way to the emergency department. Is not wheezing at this time. He is given a dose of Solu-Medrol IV. He is resting comfortably. Treatment Plan: Patient will be discharged on a 5-day burst of prednisone. He has a nebulizer at home. He is instructed to use this on a scheduled basis. Instructed to follow-up with his primary care physician 1 week if not improving. Return to the emergency department for any worsening symptoms. Disposition: To home in improved and stable condition. Impression: 1. URI. 2. Chronic renal insufficiency. This note was generated with [employer] dictation software. It may contain incorrect words, spelling, and punctuation that were not noted in review of the chart prior to signing ED Disposition - Plan for ED Patient: Chief Complaint: Shortness of Breath Instructions: ED Upper Resp Infec No Abx Tx Prescriptions: Prednisone [Deltasone] 40 mg PO DAILY #10 tablet Referrals: Neil Felder MD [Primary Care Provider] - 1 Week if not improving
[2018-07-01 05:14] LABS: Mucous, Urine 0 SEEN /hpf (<or=2+)
[2018-07-01 05:18] LABS: Color, Urine Yellow (Yellow); Glucose, Dipstick Normal (Normal); Ketone-Dipstick Negative (Negative); Leukocyte Esterase-Dipstick 25 /ul (Negative); Nitrite-Dipstick Negative (Negative); Occult Blood-Urine 50 /ul (Negative); Protein-Dipstick 100 mg/dl (Negative); Specific Gravity, Urine 1.015 (1.002-1.030); Urine Bilirubin Dipstick Negative (Negative); Urine Clarity Clear (Clear); Urine Urobilinogen Normal (Normal)
[2018-07-01 05:24] LABS: Bacteria RARE /hpf (None Seen); Red Blood Cells-Urine 0-5 SEEN /hpf (0-5); Squamous Epithelial Cells - UA 0-5 SEEN /hpf (0-5); White Blood Cells 0-5 SEEN /hpf (0-5)
[2018-07-01 05:47] VITALS: BP 165/75; PULSE 73; RESP 16; O2SAT 97
== END 2018-07-01 05:47 | disposition home or self-care (01) ==
PROVIDERS: Emergency Provider Emergency Medicine; Family Provider Internal Medicine; PCP Internal Medicine
DX: J06.9 Acute upper respiratory infection, unspecified (principal); N18.9 Chronic kidney disease, unspecified; R30.0 Dysuria; R53.1 Weakness; E11.9 Type 2 diabetes mellitus without complications; I10 Essential (primary) hypertension; E78.00 Pure hypercholesterolemia, unspecified; J44.9 Chronic obstructive pulmonary disease, unspecified; G20 Parkinson's disease; F02.80 Dementia in other diseases classified elsewhere, unspecified severity, without behavioral disturbance, psychotic disturbance, mood disturbance, and anxiety; Z86.73 Personal history of transient ischemic attack (TIA), and cerebral infarction without residual deficits
CPT/HCPCS: 71046; 80048; 81001; 85025; 96361; 96374; 99285; J7040; A4216